=== PATIENT | female | born 1975 | race Caucasian/White ===

== ENCOUNTER → 2020-03-02 | Outpatient (CLI) | payer BC ==
[2020-03-02 13:52] LABS: Basophils # (A) 0.1 k/uL (0-0.2); Basophils % (A) 1 %; Eosinophils # (A) 0.3 k/uL (0-0.7); Eosinophils % (A) 4 %; HCT 42.4 % (34.0-46.0); HGB 14.8 gm/dL (11.4-16.0); Lymphocytes # (A) 1.6 k/uL (1.0-4.8); Lymphocytes % (A) 22 %; MCH 30.2 pg (25.0-35.0); MCHC 34.9 g/dL (31.0-37.0); MCV 86.4 fL (80.0-100.0); Mean Platelet Volume 7.1; Monocytes # (A) 0.4 k/uL (0-1.0); Monocytes % (A) 6 %; Neutrophils # (A) 4.7 k/uL (1.3-7.7); Neutrophils % (A) 65 %; Platelet Count 216 k/uL (150-450); RBC 4.91 m/uL (3.80-5.40); RDW 13.6 % (11.5-15.5); WBC 7.2 k/uL (3.8-10.6)
[2020-03-02 14:05] LABS: INR 0.9 (<1.2); Prothrombin Time 10.2 sec (9.0-12.0)
== END | disposition home or self-care (01) ==
LOC: LABWHC1 12:18
PROVIDERS: ATTEND Orthopaedic Surgery
DX: Z01.812 Encounter for preprocedural laboratory examination (principal); M17.11 Unilateral primary osteoarthritis, right knee
CPT/HCPCS: 36415; 80051; 85025; 85610; 87070

== ENCOUNTER → 2020-03-03 | Outpatient (CLI) | payer BC | END | disposition home or self-care (01) | LOC: LABPAT 16:21 | PROVIDERS: ATTEND Internal Medicine | DX: Z01.818 Encounter for other preprocedural examination (principal) | CPT/HCPCS: 93005 ==

== ENCOUNTER 2020-03-08 05:34 | Day surgery (SDC) | payer BC ==
[2020-03-03 13:01] VITALS: BMI 42.0
--- NOTE | 2020-03-07 12:34 | HP ---
HISTORY AND PHYSICAL REASON FOR ADMISSION: Surgery is 03/08/2020 Megan Thorpe is a 44-year-old patient seen with symptomatic right knee osteoarthritis. We discussed options for treatment. She elected to proceed with a total knee arthroplasty. Consent regarding the procedure was obtained. Clearance was provided by Dr. Chavez. PAST MEDICAL HISTORY: Hypertension, osteoarthritis. PAST SURGICAL HISTORY: Knee arthroscopy. MEDICATIONS: Toprol, Lasix. ALLERGIES: SULFA, PENICILLIN, DARVOCET, BACTRIM. SOCIAL HISTORY: She denies current tobacco use. PHYSICAL EXAMINATION: Evaluation of the right knee: Range of motion is -2 to 125. Tenderness medial joint line. Crepitus medial patellofemoral compartments with range of motion. Pain with patellofemoral compression. Ligaments are stable. Hip rotation is without pain. Distal neurovascular exam is intact. RADIOGRAPHS: Radiographs of the right knee reveal severe osteoarthritic changes. IMPRESSION: Right knee osteoarthritis. PLAN: Right total knee arthroplasty. Surgery is 03/08/2020. MMODL / IJN: [id number] /
[~2020-03-08 05:34] MED LIST: ACETAMINOPHEN TAB 500 MG TAB PO PRN; MELOXICAM 7.5 MG TAB PO PRN; ROPIVACAINE/EPI/CLONIDINE/KET 50 ML SYRINGE MISCELLANE PRN; TRANEXAMIC ACID 1,000 MG in SODIUM CHLORIDE 0.9% 100 ML IVPB PRN
[2020-03-08] MEDS ORDERED: DEXAMETHASONE SOD PHOSPHATE 4 MG/ML 1 ML VIAL IV ONE (05:55)
[2020-03-08] MEDS ORDERED: ONDANSETRON 4 MG/2 ML VIAL IVP ONE (05:55)
[2020-03-08] MEDS ORDERED: MIDAZOLAM 2 MG/2 ML VIAL IV PRN (05:55)
[2020-03-08] MEDS ORDERED: HYDROmorphone 0.5 MG/0.5 ML SYRINGE IVP PRN ×2 (05:55→09:01)
[2020-03-08] MEDS ORDERED: SCOPOLAMINE 1.5MG/72HR PATCH TRANSDERM ONE (06:19)
[2020-03-08] MEDS: LACTATED RINGERS 1,000 ML IV SCH ×2 (06:46→11:30)
[2020-03-08] MEDS ORDERED: MIDAZOLAM 2 MG/2 ML VIAL IV ONE (06:56)
[2020-03-08] MEDS ORDERED: MIDAZOLAM 2 MG/2 ML VIAL ONE (07:21)
[2020-03-08] MEDS ORDERED: PROPOFOL 10 MG/ML 20 ML VIAL IV ONE (07:21)
[2020-03-08] MEDS ORDERED: ONDANSETRON 4 MG/2 ML VIAL ONE (07:21)
[2020-03-08] MEDS ORDERED: SODIUM CHLORIDE 0.9% 100 ML BAG ONE (07:21)
[2020-03-08] MEDS ORDERED: PHENYLEPHRINE 10 MG/ML VIAL ONE (07:21)
[2020-03-08] MEDS ORDERED: ePHEDrine SULFATE/0.9% NACL/PF 50 MG/5 ML SYRINGE IV ONE (07:21)
[2020-03-08] MEDS ORDERED: TRANEXAMIC ACID 1,000 MG/10 ML VIAL ONE (07:21)
[2020-03-08] MEDS ORDERED: CLINDAMYCIN 600 MG in SODIUM CHLORIDE 0.9% 1,000 ML IRRIGATION ONE (07:58)
--- NOTE | 2020-03-08 08:43 | P.ANPRN ---
Procedure Note - Anesthesia - Nerve Block Performed Right Adductor Canal Infusion Time Out Performed: Yes ([id number]) Date of Procedure: 03/08/20 Procedure Start Time: 06:56 Procedure Stop Time: 07:03 Location of Patient: PreOp Indication: Acute Post-Operative Pain, Requested by Surgeon Specifically requested for management of pain by DrHayden: Abelardo Quispe Sedation Type: Sedate with meaningful contact maintained Preparation: Sterile Prep Position: Supine Catheter: Indwelling Needle Gauge: 21 Ultrasound used to visualize needle placement: Yes Ultrasound used to observe medication spread: Yes Injectate: 0.5% Ropivacaine (see comment for volume) (20cc) Blood Aspirated: No Pain Paresthesia on Injection Noted: No Resistance on Injection: Normal Image Stored and Saved: Yes Events: Uneventful and Well Tolerated
[2020-03-08] MEDS ORDERED: LACTATED RINGERS 1,000 ML IV ONE (09:01)
[2020-03-08] MEDS ORDERED: NALOXONE 0.4 MG/ML 1 ML VIAL IV PRN (09:01)
[2020-03-08] MEDS ORDERED: HYDROmorphone 0.2 MG/1 ML SYRINGE IVP PRN (09:01)
[2020-03-08] MEDS ORDERED: HYDROmorphone 1 MG/ML 1 ML SYRINGE IVP PRN (09:01)
[2020-03-08] MEDS ORDERED: HYDROcodone/APAP 7.5-325MG 1 EACH TAB PO PRN (09:01)
[2020-03-08] MEDS ORDERED: ONDANSETRON 4 MG/2 ML VIAL IVP PRN (09:01)
[2020-03-08] MEDS ORDERED: HYDROcodone/APAP 5-325MG 1 EACH TAB PO PRN (09:01)
--- NOTE | 2020-03-08 09:01 | P.OP ---
Date of Procedure: 03/08/20 Preoperative Diagnosis: Right knee osteoarthritis Postoperative Diagnosis: Right knee osteoarthritis Procedure(s) Performed: Right total knee arthroplasty Implants: 1. Depuy attune size 5 narrow right cruciate retaining cemented femur 2. Depuy attune size 4 fixed bearing cemented tibial baseplate 3. Depuy attune size 5 fixed bearing cruciate retaining 8 mm polyethylene tibial insert 4. Depuy attune 35 mm all polyethylene cemented patella Anesthesia: regional (Adductor canal catheter), local, spinal Surgeon: Abelardo Quispe Jack Prizer #1: aTe Amador Estimated Blood Loss (ml): 45 Pathology: other (Bone) Condition: stable Disposition: PACU Indications for Procedure: 44-year-old patient seen with symptomatic right knee osteoarthritis. After treatment options were discussed, she elected to proceed with total knee arthroplasty. Operative Findings: see description of procedure Description of Procedure: Patient was taken to the operative suite after having an adductor canal catheter placed by the department of anesthesia. Patient underwent a spinal anesthetic by the department of anesthesia. Patient was given preoperative IV intake antibiotics and TXA. A well-padded tourniquet was placed about the right lower extremity. The lower extremity was then prepped and draped in the normal sterile orthopedic fashion. The extremity was elevated, a tourniquet was insufflated to 300. A standard anterior incision was made sharply through skin. Dissection was taken down through the subcutaneous soft tissues down to the extensor mechanism. A medial arthrotomy was performed, patella was everted and knee was flexed. There was advanced osteoarthritis noted. I introduced my distal intramedullary femoral drill. I then introduced the distal femoral cu tting jig. Luca NELSON secured the cutting jig with 2 pins. I held retractors in position while Luca NELSON performed the distal femoral resection through the guide area we now removed her distal femoral cutting guide. We now placed our 4-in-1 femoral cutting block and positioned and it was secured with 2 pins by Luca NELSON while I held the block in position. The distal femoral finishing was now completed. A proximal tibial cutting guide was positioned. I held the guide in the appropriate position with both hands well Luca NELSON inserted stabilizing pins into the guide. Proximal tibial cut was made. We now placed a trial femoral component into position, along with an appropriate size tibial tray and insert. We now took the knee through range of motion and had full extension good flexion and good overall soft tissue balance noted. The patella was everted and stabilized with 2 towel clips held by Luca NELSON while I performed a flush with patellar quad tendon utilizing a fresh sawblade. We templated the patella, appropriate drill holes were made. An appropriate trial patella was positioned, knee was taken through full range of motion with the patella tracking very nicely. The trial patella was removed. Drill holes were made through the femoral component. All trial components were removed after marking off the appropriate rotation of the tibia. Retractors were now positioned along the proximal tibia. An appropriate keel punch was made with the appropriate size tibial guide by myself on Luca NELSON assisted by holding retractors. At this point appropriate size implants were chosen and opened. The joint was irrigated copiously with pulse lavage mechanical irrigation. The posterior capsule was infiltrated with local analgesic. The wound was irrigated with pulse lavage mechanical irrigation. We mixed antibiotic methylmethacrylate. We placed the knee into flexion. We placed multiple retractors assisted by Luca NELSON to expose the proximal tibia. Once the methyl methacrylate was ready, the tibial component was cemented into place removing any excess methylmethacrylate form by both myself and Luca NELSON. The femoral component was cemented into place removing the removing any excess methylmethacrylate performed by both myself and Luca NELSON. We then inserted the appropriate size polyethylene tibial insert. We made sure that it was locked into position. We took the knee into full extension, and then back in a flexion making sure we had removed any excess methylmethacrylate. The patellar component was then cemented down and secured with clamp. Excess methylmethacrylate removed. We kept the knee in full extension, patellar clamp in position until methylmethacrylate had hardened. Once it had hardened the patellar clamp was removed. The knee was taken through full range of motion. The patella tracked nicely. There was good soft tissue balancing. The tourniquet was now released. Additional hemostasis was achieved via electrocautery. A second gram of TXA was given. The wound again was irrigated with pulse lavage mechanical irrigation. The superficial soft tissues were infiltrated local analgesic. The extensor mechanism was repaired with Vicryl. We checked the repair with range of motion and it was stable. The subcutaneous soft tissues were repaired with Vicryl in layers. The skin was approximated with pernio/Dermabond. Sterile dressings were applied followed by loose web roll and Javier bandage. The patient was transferred to a bed, and taken to recovery in stable and satisfactory condition. Luca NELSON assisted with this complex procedure.
[2020-03-08 09:52] VITALS: TEMP 97
[2020-03-08 09:54] VITALS: RESP 16
[2020-03-08] MEDS ORDERED: ROPIVACAINE 0.2%-NS ON-Q PUMP 1,090 MG, EMPTY PAIN BALL 1 EACH MISCELLANE PRN (09:55)
--- NOTE | 2020-03-08 10:10 | XR ---
EXAMINATION TYPE: XR knee limited RT DATE OF EXAM: 03/08/2020 CLINICAL HISTORY: Right knee pain and arthritis status post total knee replacement. TECHNIQUE: Portable AP and crosstable lateral views of the right knee are obtained immediately posto peratively. COMPARISON: Outside right knee x-ray February 06, 2020. FINDINGS: Metallic hardware from total right knee arthroplasty is seen and appears satisfactory in a lignment and position. There is evidence of recent surgery with diffuse subcutaneous and soft tissue swelling noted. IMPRESSION: METALLIC HARDWARE FROM TOTAL RIGHT KNEE ARTHROPLASTY IS SATISFACTORY IN ALIGNMENT.
[2020-03-08 14:20] VITALS: BP 125/79; PULSE 78
== END 2020-03-08 14:21 | disposition home health service (06) ==
LOC: OR 05:34
PROVIDERS: ATTEND Orthopaedic Surgery
DX: M17.11 Unilateral primary osteoarthritis, right knee (principal); I10 Essential (primary) hypertension; Z88.0 Allergy status to penicillin; Z88.2 Allergy status to sulfonamides; Z88.5 Allergy status to narcotic agent; Z88.8 Allergy status to other drugs, medicaments and biological substances; Z98.51 Tubal ligation status; Z79.899 Other long term (current) drug therapy
CPT/HCPCS: 97110; 97161; 81025; 64448; 76942; 88300; 73560; 27447; C1776; C1713; J2250; J1100; J2370; J0690; J2405; J2704; J2795

== ENCOUNTER 2020-05-17 11:26 | Day surgery (SDC) | payer BC ==
[2020-05-12 16:01] VITALS: BMI 39.4
--- NOTE | 2020-05-16 15:11 | HP ---
HISTORY AND PHYSICAL DATE OF SURGERY: 05/17/2020 Megan Thorpe is a 45-year-old patient seen with persistent right knee stiffness after having previously undergone right total knee arthroplasty. We discussed options. She elected to proceed with manipulation under anesthesia right knee with steroid injection. Consent obtained. PAST MEDICAL HISTORY: Noncontributory. PAST SURGICAL HISTORY: Right knee arthroscopy, right total knee arthroplasty. DAILY MEDICATIONS: Tramadol. ALLERGIES: SULFA, PENICILLIN, DARVOCET, BACTRIM. SOCIAL HISTORY: She denies tobacco use. PHYSICAL EXAMINATION: Evaluation of the right knee, there is a well-healed anterior incision. There is no evidence for any infective process. Range of motion is -4/5-40. Her distal neurovascular exam is intact. RADIOGRAPHS: Right knee radiographs revealed a stable appearing total knee arthroplasty. IMPRESSION: 1. Right knee adhesions. 2. Right total knee arthroplasty. PLAN: Manipulation under anesthesia right knee with steroid injection. MMODL / IJN: [id number] /
[~2020-05-17 11:26] MED LIST changes: -ACETAMINOPHEN TAB 500 MG TAB PO PRN; +DEXAMETHASONE SOD PHOSPHATE 4 MG/ML 1 ML VIAL IV ONE; +HYDROmorphone 0.5 MG/0.5 ML SYRINGE IVP PRN; +LACTATED RINGERS 1,000 ML IV SCH; -MELOXICAM 7.5 MG TAB PO PRN; +ONDANSETRON 4 MG/2 ML VIAL IVP ONE; -ROPIVACAINE/EPI/CLONIDINE/KET 50 ML SYRINGE MISCELLANE PRN; -TRANEXAMIC ACID 1,000 MG in SODIUM CHLORIDE 0.9% 100 ML IVPB PRN
[2020-05-17] MEDS ORDERED: ONDANSETRON 4 MG/2 ML VIAL ONE (11:59)
[2020-05-17 12:08] VITALS: TEMP 97
[2020-05-17] MEDS ORDERED: MIDAZOLAM 2 MG/2 ML VIAL IV ONE (12:14)
[2020-05-17] MEDS ORDERED: METOPROLOL TARTRATE 5 MG/5 ML VIAL IVP ONE (12:29)
[2020-05-17] MEDS ORDERED: HYDROmorphone (PF) 1 MG/ML ONE (12:29)
[2020-05-17] MEDS ORDERED: diphenhydrAMINE 50 MG/ML 1 ML VIAL ONE (12:29)
[2020-05-17] MEDS ORDERED: PROPOFOL 10 MG/ML 20 ML VIAL IV ONE (12:29)
[2020-05-17] MEDS ORDERED: KETOROLAC 15 MG/ML 1 ML VIAL ONE (12:29)
--- NOTE | 2020-05-17 12:40 | P.OP ---
Date of Procedure: 05/17/20 Preoperative Diagnosis: Right knee adhesions Postoperative Diagnosis: Right knee adhesions Procedure(s) Performed: Right knee manipulation under anesthesia with steroid injection Anesthesia: MAC, local Surgeon: Abelardo Quispe Estimated Blood Loss (ml): 0 Pathology: none sent Condition: stable Disposition: PACU Indications for Procedure: 45-year-old patient seen with persistent right knee adhesions after having previously having undergone total knee arthroplasty. I recommended manipulation under anesthesia steroid injection. Patient was agreeable and consent was obtained. Operative Findings: See description of procedure Description of Procedure: The patient was taken to a monitored anesthesia area. The patient received IV antibiotics. The patient underwent IV sedation by the department of anesthesia. Once sufficient anesthesia was noted I performed a manipulation of the right knee achieving near full range of motion with audible tearing of the adhesions. The superior lateral aspect of the right knee was prepped and draped in the normal sterile orthopedic fashion. I injected 1 mL Depo-Medrol and 3 mL 1% plain Marcaine intra-articular under sterile technique. A sterile Band-Aid was applied. The knee was again taken through range of motion. The patient was awakened having tolerated the procedure well.
[2020-05-17 14:05] VITALS: BP 138/94; PULSE 77; RESP 17
== END 2020-05-17 14:25 | disposition home or self-care (01) ==
LOC: OR 11:26
PROVIDERS: ATTEND Orthopaedic Surgery
DX: M23.8X1 Other internal derangements of right knee (principal); I10 Essential (primary) hypertension; M19.90 Unspecified osteoarthritis, unspecified site; R51.9 Headache, unspecified; Z88.2 Allergy status to sulfonamides; Z88.0 Allergy status to penicillin; Z88.5 Allergy status to narcotic agent; Z96.651 Presence of right artificial knee joint; Z98.890 Other specified postprocedural states; Z79.891 Long term (current) use of opiate analgesic; Z97.2 Presence of dental prosthetic device (complete) (partial); Z79.899 Other long term (current) drug therapy; Z79.1 Long term (current) use of non-steroidal anti-inflammatories (NSAID); Z79.82 Long term (current) use of aspirin; Z91.89 Other specified personal risk factors, not elsewhere classified
CPT/HCPCS: 27570; 81025; J2250; J1200; J0690; J2405; J1170 ×2; J1885; J2704

== ENCOUNTER → 2020-11-03 | Outpatient (CLI) | payer BC ==
--- NOTE | 2020-11-03 08:24 | US ---
EXAMINATION TYPE: US liver DATE OF EXAM: 11/03/2020 COMPARISON: NONE CLINICAL HISTORY: R94.5 abnormal liver function test. elevated lft's, no symptoms EXAM MEASUREMENTS: Liver Length: 19.3 cm Gallbladder Wall: 0.2 cm CBD: 0.6 cm Right Kidney: 10.0 x 4.0 x 5.0 cm Pancreas: limited views due to bowel gas Liver: very difficult to penetrate, heterogeneous Gallbladder: wnl Evidence for sonographic Lamar's sign: no CBD: wnl Right Kidney: wnl IMPRESSION: ).
== END | disposition home or self-care (01) ==
LOC: RADUSWWP 07:35
PROVIDERS: ATTEND Internal Medicine
DX: K76.0 Fatty (change of) liver, not elsewhere classified (principal)
CPT/HCPCS: 76705

== ENCOUNTER → 2023-08-31 | Outpatient (CLI) | payer BC ==
--- NOTE | 2023-09-05 16:53 | MR ---
EXAMINATION TYPE: MR knee LT wo con DATE OF EXAM: 08/31/2023 COMPARISON: Outside radiograph 08/22/2023 HISTORY: 48-year-old female M25.562, Left knee pain and swelling x3 months TECHNIQUE: Multiplanar, multisequence imaging of the left knee is performed without IV contrast. FINDINGS: ACL and PCL are intact. Prominent edema on either side of the otherwise intact MCL. Suspected split tear of the popliteus tendon, coronal image 20. There is a through thickness radial tear involving the posterior root of the medial meniscus with com plex multidirectional tear extending throughout the posterior horn and body. Mild irregular cartilage thinning mid weightbearing aspect of the medial femoral condyle with some reactive subchondral marro w signal change. Prominent degenerative signal anterior horn of the lateral meniscus without discrete tear at this ezio e. Lateral compartment articular cartilage volume is maintained. Focal moderate to severe irregular cartilage loss especially along the mid and medial patellar facet. Also along the medial trochlear facet. Cartilage volume along the lateral facets and trochlear groov e appear maintained. There is a [id number] knee joint effusion. Ruptured Navarro's cyst with edema tracking down the posterior calf. Nonspecific subcutaneous soft tissue swelling is present throughout. Extensor mechanism is intact. Normal popliteal artery is normal. No suspicious bone marrow replacement. IMPRESSION: 1. A prominent grade 1 MCL sprain. There appears to be an interstitial versus split tear of the popli teus tendon. 2. Large through thickness tear involving the posterior root of the medial meniscus and complex multi directional tears extending throughout the remainder of the posterior horn and body. Mild overall med ial compartmental OA. 3. Prominent degenerative signal anterior horn of the lateral meniscus without discrete tear. 4. Areas of moderate to severe irregular cartilage loss along the medial facets of the patellofemoral compartment. 5. Xnvkg-gk-texvhqdz knee joint effusion and a ruptured Navarro cyst with prominent fluid tracking down posterior calf.
== END | disposition home or self-care (01) ==
LOC: RADMRIMAIN 19:15
PROVIDERS: ATTEND Orthopaedic Surgery
DX: M25.562 Pain in left knee (principal)

== ENCOUNTER 2023-10-25 09:49 | Day surgery (SDC) | payer BC ==
[2023-10-23 10:32] VITALS: BMI 40.7
--- NOTE | 2023-10-25 06:24 | HP ---
HISTORY AND PHYSICAL DATE OF SURGERY: 10/25/2023 HISTORY: The patient is a 48-year-old patient, seen with progressive left knee pain. We discussed options regarding treatment. She elected to proceed with left knee arthroscopy. Consent is obtained. PAST MEDICAL HISTORY: Hypertension. PAST SURGICAL HISTORY: Knee arthroscopy. MEDICATIONS: Daily medications are: 1. Hydrochlorothiazide. 2. Ibuprofen. 3. Toprol. ALLERGIES: Sulfa, penicillin, Darvocet. SOCIAL HISTORY: She denies tobacco use. PHYSICAL EVALUATION OF THE LEFT KNEE: Range of motion is 0 to 130 degrees. Mild effusion. Tenderness in medial joint line. Positive medial Nicol's. Ligaments stable. Hip rotation without pain. Distal neurovascular exam intact. IMAGING DATA: Left knee radiographs reveal osteoarthritic changes, mild to moderate. Left knee MRI revealed medial meniscal tear. IMPRESSION: Internal derangement of left knee with medial meniscal tear. PLAN: Left knee arthroscopy with partial medial meniscectomy and debridement. MMODL / IJN: [id number] /
[~2023-10-25 09:49] MED LIST changes: -DEXAMETHASONE SOD PHOSPHATE 4 MG/ML 1 ML VIAL IV ONE; -LACTATED RINGERS 1,000 ML IV SCH; -ONDANSETRON 4 MG/2 ML VIAL IVP ONE
[2023-10-25] MEDS: LACTATED RINGERS 1,000 ML IV SCH (10:31)
[2023-10-25] MEDS: ONDANSETRON 4 MG/2 ML VIAL IVP ONE (10:33)
[2023-10-25] MEDS: DEXAMETHASONE SOD PHOSPHATE 4 MG/ML 1 ML VIAL IV ONE (10:33)
[2023-10-25] MEDS: IV FLUID CONTINUATION 1,000 ML IV ONE (10:39)
[2023-10-25] MEDS: SCOPOLAMINE 1 MG/72 HR PATCH TRANSDERM ONE (10:39)
[2023-10-25] MEDS ORDERED: KETOROLAC 15 MG/ML 1 ML VIAL ONE (10:48)
[2023-10-25] MEDS ORDERED: diphenhydrAMINE 50 MG/ML 1 ML VIAL ONE (10:48)
[2023-10-25] MEDS ORDERED: LIDOCAINE 1% INJ 10MG/ML (20 ML MDV) ONE (10:48)
[2023-10-25] MEDS ORDERED: SUCCINYLCHOLINE CHLORIDE 200 MG/10 ML VIAL IV ONE (10:48)
[2023-10-25] MEDS ORDERED: HYDROmorphone (PF) 1 MG/ML ONE (10:48)
[2023-10-25] MEDS ORDERED: MIDAZOLAM 2 MG/2 ML VIAL ONE (10:48)
[2023-10-25] MEDS ORDERED: PROPOFOL 10 MG/ML 20 ML VIAL IV ONE (10:48)
[2023-10-25] MEDS: BUPIVACAINE (PF) 0.25% 10 ML VIAL SQ ONE (11:16)
[2023-10-25 11:44] VITALS: TEMP 98
--- NOTE | 2023-10-25 11:44 | P.OP ---
Date of Procedure: 10/25/23 Preoperative Diagnosis: Internal derangement left knee Postoperative Diagnosis: 1. Tear medial meniscus left knee 2. Grade IV chondromalacia medial femoral condyle left knee 3. Reactive synovitis medial, lateral and suprapatellar compartments left knee Procedure(s) Performed: 1. Arthroscopic partial medial meniscectomy left knee 2. Arthroscopic microfracture medial femoral condyle left knee 3. Arthroscopic partial synovectomy medial, lateral and suprapatellar compartments left knee Anesthesia: KATJAA, local Surgeon: Abelardo Quispe Estimated Blood Loss (ml): 8 Pathology: none sent Condition: stable Disposition: PACU Indications for Procedure: 48-year-old patient seen with progressive left knee pain. After having treatment options discussed, she elected to proceed with arthroscopy. Operative Findings: See description of procedure Description of Procedure: Patient was taken to the operative suite. Patient underwent a general anesthetic by the department of anesthesia. Patient was given preoperative antibiotics. The left lower extremity was placed in a well-padded arthroscopic leg man. The left leg was prepped and draped in the normal sterile orthopedic fashion. A lateral parapatellar and suprapatellar incision was made. Trochars were inserted. Arthroscopy was initiated. Suprapatellar pouch revealed diffuse thick reactive synovitis. The patellofemoral joint appeared to articulate congruently. There was grade I chondromalacia of the patella without significant tearing. The scope was guided into the medial gutter. No loose bodies or plica were identified. The scope was then guided into the medial compartment. A medial parapatellar incision was made. Trocar inserted followed by probe. There was a tear involving the posterior horn of the medial meniscus. There was an area of grade III/IV chondromalacia medial femoral condyle with large osteochondral flap tears present. There was thick reactive synovitis anteriorly. I performed a partial medial meniscectomy getting down to stable meniscal tissue. I performed a chondroplasty of the medial femoral condyle getting down to stable osteochondral tissue. I performed a partial synovectomy decompressing the thick reactive synovitis anteriorly. I did note an area of exposed bone weightbearing surface medial femoral condyle measuring about 1 cm x 1 1/2 cm. I had used a microfracture awl and I performed microfracture to the area penetrating the bone with resultant bleeding at the microfracture site. The residual osteochondral surface was stable. The residual meniscus was stable. There was good decompression of the synovitis. Scope and probe were then guided into the intercondylar notch. Cruciates were identified, probed and found to be stable. The scope and probe were then guided into lateral compartment. The lateral meniscus was found to be stable. There were grade I chondromalacia changes lateral compartment without tears. There was some thick reactive synovitis anteriorly. I used a motorized shaver and performed a partial synovectomy. The shaver was removed. There was good decompression of the synovitis. The scope was in guided back into the suprapatellar compartment. I introduced a motorized shaver into the supra compartment. I debrided some piecemeal fragments of meniscus I encountered. I performed a partial synovectomy. The shaver was now removed. There was good decompression of the synovitis. I took 1 more look around the entire knee, no residual debris. Instruments were now removed from the joint. The joint was infiltrated with .25% Marcaine. Steri-Strips were applied to the portal sites. Sterile dressings were applied. The patient was placed into a GEORGINA hose. No tourniquet was utilized. The patient was awakened, transferred to a bed and taken to recovery stable satisfactory condition.
[2023-10-25 11:57] VITALS: RESP 16
[2023-10-25 12:40] VITALS: BP 111/77; PULSE 72
== END 2023-10-25 12:59 | disposition home or self-care (01) ==
LOC: OR 09:49
PROVIDERS: ATTEND Orthopaedic Surgery
DX: S83.242A Other tear of medial meniscus, current injury, left knee, initial encounter (principal); M17.12 Unilateral primary osteoarthritis, left knee; M65.162 Other infective (teno)synovitis, left knee; M22.42 Chondromalacia patellae, left knee; I10 Essential (primary) hypertension; Z79.899 Other long term (current) drug therapy; Z88.0 Allergy status to penicillin; Z88.2 Allergy status to sulfonamides; Z79.1 Long term (current) use of non-steroidal anti-inflammatories (NSAID); Z88.8 Allergy status to other drugs, medicaments and biological substances; X58.XXXA Exposure to other specified factors, initial encounter